=== PATIENT | female | born 1945 | race African-American/Black ===

== ENCOUNTER 2023-12-23 18:12 | Observation (INO) ==
--- NOTE | 2023-12-23 18:55 | Emergency Department Note ---
Impression & Plan Chest pain ED Provider Note HISTORY OF PRESENT ILLNESS: Patient is a 78-year-old female presenting with substernal chest pressure. Patient reports that she has been having intermittent chest pressure for the last 3 days. She states that she has also had some associated shortness of breath. Reports that 3 days ago the symptoms occurred multiple times throughout the day but seem to go away on their own. She states that today her episodes of chest pressure are little bit more intense and lasting for longer periods. She is on a baby aspirin daily. She reports her last stent was in 2019. She has a history of multiple cardiac stents. She is a complicated cardiac history. Denies any DVT or PE history. She reports that she has not had a stress test or echocardiogram done in the last year or so. She states that over the last 3 days she has been having significant shortness of breath with any sort of minimal exertion. Reports that yesterday she basically stayed in bed all day secondary to being so winded with basic activities. Denies any lower extremity edema. Denies any nausea or vomiting or abdominal pain. She has not taken any of her medications today or eaten or drink anything today. ROS: as above PHYSICAL EXAM: Constitutional: Patient appears in no acute distress. HENT: Head: Normocephalic and atraumatic. Eyes: EOMI, PERRL Mouth/Throat: Mucous membranes moist. Neck: Trachea midline. Neck supple. Cardiovascular: Bradycardic with regular rhythm. No murmurs, rubs or gallops. Intact distal pulses. Pulmonary/Chest: No respiratory distress. Breath sounds clear and equal bilaterally. No wheezes or rales. Abdominal: Abdomen soft, no tenderness, rebound or guarding. Musculoskeletal: No edema, tenderness or deformity noted. Skin: Warm and dry. No rash, erythema, pallor or cyanosis Psychiatric: Appropriate mood and affect for situation. Neurological: Alert and keenly responsive. CN II-XII grossly intact, moving all extremities equally and fully. MDM: - Vitals signs showed hypertension bradycardia - History obtained via patient. History as above. - Chronic conditions affecting care: CAD (S/p PCI); chronic low back pain; HTN; HLD - Differential diagnoses include, but are not limited to: Acute coronary syndrome; pulmonary embolism; dissection; tension pneumothorax; esophageal rupture; pneumonia - Order placed for continuous cardiac monitoring. At this time, monitor showed rate of 51 bpm with normal sinus rhythm, per my interpretation. - External medical records reviewed. - EKG interpreted by myself showed normal sinus rhythm. Rate bradycardic at 48 bpm. QT 362. No acute ischemic changes. - Laboratory workup interpreted by myself showed normal WBC; normal PT/INR; stable electrolytes; normal troponin; normal BNP; normal lipase - CXR negative for pneumonia, per my interpretation - UA negative for infection - Patient given 324 mg PO aspirin in ER. - Patient given 30 mg IV toradol, as she reports she has not yet had her naproxen today for her chronic low back pain. - Moderate HEART score. - Discussion was had with skilled nursing case manager about patient's case and need for admission - Hospitalist, Dr. Fitzgerald, consulted for admission - Patient admitted to [facility] service for further evaluation and management. ASSESSMENT AND PLAN: Diagnosis: Chest pain Plan: Admit Past Med/Surg History Problem List (Updated 12/23/23 @ 21:38 by Tanya Jacobson MD) Chest pain (Acute) Social History Smoking Status: Never smoker Preferred Language: S[place] Feels Safe at Home: Yes Allergies Allergies Allergy/AdvReac Type Severity Reaction Status Date / Time MARIA DEL CARMEN Inhibitors Allergy Severe ANGIOEDEMA Verified 12/23/23 21:33 Home Meds Home Medications Medication Instructions Recorded Confirmed acetaminophen 500 mg tablet 500 mg PO 3XWK 12/23/23 12/23/23 (Tylenol Extra Strength) albuterol sulfate 90 mcg/actuation 1 puff inhalation QID 12/23/23 12/23/23 aerosol inhaler amlodipine 10 mg tablet 10 mg PO [facility] 12/23/23 12/23/23 aspirin 81 mg tablet,delayed 81 mg PO [facility] 12/23/23 12/23/23 release atenolol 25 mg tablet 12.5 mg PO [facility] 12/23/23 12/23/23 atorvastatin 80 mg tablet 80 mg PO 12/23/23 12/23/23 ezetimibe 10 mg tablet 10 mg PO [facility] 12/23/23 12/23/23 famotidine 40 mg tablet 40 mg PO 12/23/23 12/23/23 fluticasone propionate 50 2 spray intranasal [facility] 12/23/23 12/23/23 mcg/actuation nasal spray,suspension isosorbide mononitrate 60 mg 60 mg PO [facility] 12/23/23 12/23/23 tablet,extended release 24 hr levothyroxine 100 mcg tablet 100 mcg PO DAILYBB 12/23/23 12/23/23 lorazepam 0.5 mg tablet 0.5 mg PO DAILY PRN Anxiety 12/23/23 12/23/23 losartan 50 mg-hydrochlorothiazide 1 tab PO QAM 12/23/23 12/23/23 12.5 mg tablet multivitamin 1 tab PO QAM 12/23/23 12/23/23 naproxen 250 mg tablet 250 mg PO 4XWK 12/23/23 12/23/23 omeprazole 40 mg capsule,delayed 40 mg PO QAM 12/23/23 12/23/23 release Results & Data (ED) Vital Signs Vital Signs - 24 hr 12/23/23 18:12 12/23/23 18:12 12/23/23 18:29 Temperature 36.4 C L Temperature Source Temporal Artery Scan Pulse Rate 50 L Pulse Rate [Apical] Pulse Rhythm Regular Pulse Rhythm [Apical] Pulse Strength Normal Respiratory Rate 18 Respiratory Effort / Characteristics Non-Labored Respiratory Depth Normal Respiratory Pattern Regular Blood Pressure 190/83 H Blood Pressure [Right Arm] Blood Pressure Mean 118 Blood Pressure Mean [Right Arm] Blood Pressure Position Sitting Blood Pressure Position [Right Arm] Pulse Oximetry 98 96 Oxygen Delivery Method Room Air Room Air Sepsis Recent Fever Within 48 Hours No Sepsis New/Unexplained Change in Mental Status No Sepsis Action Taken by Nursing No Action Required 12/23/23 18:30 12/23/23 19:59 12/23/23 20:44 Temperature Temperature Source Pulse Rate 53 L Pulse Rate [Apical] 52 L 51 L Pulse Rhythm Pulse Rhythm [Apical] Regular Pulse Strength Respiratory Rate 16 16 Respiratory Effort / Characteristics Non-Labored Spontaneous Non-Labored Spontaneous Respiratory Depth Normal Normal Respiratory Pattern Regular Regular Blood Pressure Blood Pressure [Right Arm] 152/64 H 122/74 Blood Pressure Mean Blood Pressure Mean [Right Arm] 93 90 Blood Pressure Position Blood Pressure Position [Right Arm] Sitting Pulse Oximetry 97 98 Oxygen Delivery Method Room Air Room Air Sepsis Recent Fever Within 48 Hours Sepsis New/Unexplained Change in Mental Status Sepsis Action Taken by Nursing Laboratory Data 12/23/23 19:58 12/23/23 19:58 Lab Results 12/23/23 12/23/23 Range/Units 19:58 20:48 WBC 6.13 (4.8-10.8) K/ul RBC 5.77 H (4.20-5.40) M/uL Hgb 14.6 (12.0-16.0) g/dl Hct 46.3 (37.0-47.0) % MCV 80.2 (80.0-100.0) fL MCH 25.3 (25.0-34.0) pg MCHC 31.5 L (32.0-36.0) g/dL RDW Std Deviation 45.1 (36.4-46.3) fL RDW Coeff of Erin 15.8 H (11.5-14.5) % Plt Count 241 (130-400) K/uL MPV 10.6 (9.4-12.4) fL Immature Gran % (Auto) 0.2 % Neut % (Auto) 47.2 % Lymph % (Auto) 40.6 % [place] % (Auto) 9.1 % Eos % (Auto) 1.8 % Baso % (Auto) 1.1 % Neut # (Auto) 2.89 (1.40-6.50) K/uL Lymph # (Auto) 2.49 (1.20-3.40) K/uL [place] # (Auto) 0.56 (0.11-0.59) K/uL Eos # (Auto) 0.11 (0.00-0.50) K/uL Baso # (Auto) 0.07 (0.00-0.20) K/uL Immature Gran # (Auto) 0.01 (0.01-0.20) K/uL PT 11.2 (9.0-12.0) Seconds INR 1.0 (0.9-1.1) Sodium 139 (136-145) mmol/L Potassium 4.3 (3.5-5.1) mmol/L Chloride 104 (98-107) mmol/L Carbon Dioxide 26 (21-32) mmol/L Anion Gap 9 (3-11) BUN 21 (6-23) mg/dl Creatinine 1.06 (0.6-1.2) mg/dl Est Cr Clr Drug Dosing Not Reportable Est GFR ( Amer) 58.7 ml/min Est GFR (Non-Af Amer) 50.6 ml/min BUN/Creatinine Ratio 19.8 (10-20) Glucose 83 (70-99(Fasting)) mg/dl Calcium 10.0 (8.6-10.3) mg/dl Total Bilirubin 0.7 (0.2-1.0) mg/dl AST 25 (13-39) U/L ALT 18 (7-52) U/L Alkaline Phosphatase 98 (34-104) U/L Troponin I High Sens 8.0 (0-14) pg/ml B-Natriuretic Peptide 86 (0-100) pg/ml Total Protein 8.8 H (6.0-8.3) gm/dl Albumin 4.4 (3.4-5.0) gm/dl Globulin 4.4 H (2.5-4.0) gm/dl Albumin/Globulin Ratio 1.0 (0.9-2) Lipase 13 (11-82) U/L Urine Color Yellow Urine Appearance Clear (Clear) Urine pH 5.0 (4.5-7.5) Ur Specific [place] 1.009 (1.000-1.030) Urine Protein Negative (Negative) Urine Glucose (UA) Negative (Negative) Urine Ketones Negative (Negative) Urine Blood Negative (Negative) Urine Nitrite Negative (Negative) Urine Bilirubin Negative (Negative) Urine Urobilinogen Negative (Negative) Ur Leukocyte Esterase 1+ H (Negative) Urine WBC (Auto) 0-5 (0-5) /hpf Urine RBC (Auto) 0-2 (0-2) /hpf U Hyaline Cast (Auto) 0-2 (0-2) /lpf U Epithel Cells (Auto) 0-2 (0-2) /hpf Urine Bacteria (Auto) None Seen (None Seen) Administered Medications Discontinued Medications Aspirin (Aspirin Chew 324 Mg) 324 mg PO NOW STA Stop: 12/23/23 18:56 Last Admin: 12/23/23 19:21 Dose: 324 mg Documented By: REGULO Ketorolac Tromethamine (Ketorolac 30 Mg/Ml Vial) 30 mg IV NOW ONE Stop: 12/23/23 21:03 Last Admin: 12/23/23 21:10 Dose: 30 mg Documented By: REGULO Imaging Data Radiologist's Impression: Chest X-Ray 12/23/23 18:29 XR chest 1V portable HISTORY: 78 years-old Female Chest pain, nonspecific COMPARISON: None TECHNIQUE: AP view of the chest FINDINGS: Cardiac silhouette is enlarged. Surgical clips project over the left lung base and left hilum. Mild nonspecific interstitial coarsening, likely chronic. No pneumothorax or pleural effusion. Bones appear grossly intact. IMPRESSION: No acute process. ACT 112: Negative or not required by law. The above report was generated using voice recognition software. It may contain grammatical, syntax or spelling errors. Electronically signed by: Roshan Kahn M.D. 12/23/2023 6:59 PM Discharge Plan Visit Data Chief Complaint: Cardiac Assessment Stated Complaint: CARDIAC ASSESSMENT ED Provider: Tanya Jacobson Discharge Problem: Chest pain Forms Stand Alone Forms: My [facility] [employer] Prescriptions Prescriptions: No Action multivitamin [Multiple Vitamin] Tablet 1 tab PO QAM atorvastatin 80 mg tablet 80 mg PO HS famotidine 40 mg tablet 40 mg PO HS atenolol 25 mg tablet 12.5 mg PO QAM naproxen 250 mg tablet 250 mg PO 4XWK Rx Instructions: TAKE IN MORNING OF //SUN/SUN omeprazole 40 mg capsule,delayed release(DR/EC) 40 mg PO QAM isosorbide mononitrate 60 mg tablet extended release 24 hr 60 mg PO QAM lorazepam 0.5 mg tablet 0.5 mg PO DAILY PRN (Reason: Anxiety) amlodipine 10 mg tablet 10 mg PO QAM albuterol sulfate 90 mcg/actuation HFA aerosol inhaler 1 puff INHALATION QID losartan-hydrochlorothiazide 50-12.5 mg tablet 1 tab PO QAM fluticasone propionate 50 mcg/actuation spray,suspension 2 spray INTRANASAL QAM ezetimibe 10 mg tablet 10 mg PO QAM levothyroxine 100 mcg tablet 100 mcg PO DAILYBB acetaminophen [Tylenol Extra Strength] 500 mg Tablet 500 mg PO 3XWK Rx Instructions: take in the mornings of MON/WED/FRI aspirin [Aspirin Low-Strength] 81 mg Tablet,Delayed Release (Dr/Ec) 81 mg PO QAM Referrals Referrals: PCP,NO [Physician] -
--- NOTE | 2023-12-23 19:00 | XRay Report ---
XR chest 1V portable HISTORY: 78 years-old Female Chest pain, nonspecific COMPARISON: None TECHNIQUE: AP view of the chest FINDINGS: Cardiac silhouette is enlarged. Surgical clips project over the left lung base and left hilum. Mild n onspecific interstitial coarsening, likely chronic. No pneumothorax or pleural effusion. Bones appear grossly intact. IMPRESSION: No acute process. ACT 112: Negative or not required by law. The above report was generated using voice recognition software. It may contain grammatical, syntax o r spelling errors. Electronically signed by: Roshan Kahn M.D. 12/23/2023 6:59 PM
[2023-12-23] MEDS: ASPIRIN CHEW 324 MG PO STA (19:21)
[2023-12-23 20:14] LABS: Basophils # (auto) 0.07 K/uL (0.00-0.20); Basophils % (auto) 1.1 %; Eosinophils # (auto) 0.11 K/uL (0.00-0.50); Eosinophils % (auto) 1.8 %; Hematocrit (blood only) 46.3 % (37.0-47.0); Hemoglobin 14.6 g/dl (12.0-16.0); Immature Granulocytes # (auto) 0.01 K/uL (0.01-0.20); Immature Granulocytes % (auto) 0.2 %; Lymphocytes # (auto) 2.49 K/uL (1.20-3.40); Lymphocytes % (auto) 40.6 %; Mean Corpuscular Hemoglobin 25.3 pg (25.0-34.0); Mean Corpuscular Hgb Conc 31.5 g/dL (32.0-36.0); Mean Corpuscular Volume 80.2 fL (80.0-100.0); Mean Platelet Volume 10.6 fL (9.4-12.4); Monocytes # (auto) 0.56 K/uL (0.11-0.59); Monocytes % (auto) 9.1 %; Neutrophils # (auto) 2.89 K/uL (1.40-6.50); Neutrophils % (auto) 47.2 %; Platelet Count 241 K/uL (130-400); RDW Coefficient of Variation 15.8 % (11.5-14.5); RDW Standard Deviation 45.1 fL (36.4-46.3); Red Blood Count 5.77 M/uL (4.20-5.40); White Blood Count 6.13 K/ul (4.8-10.8)
[2023-12-23 20:29] LABS: Alanine Aminotransferase 18 U/L (7-52); Albumin Level 4.4 gm/dl (3.4-5.0); Alkaline Phosphatase 98 U/L (34-104); Anion Gap 9 (3-11); Aspartate Aminotransferase 25 U/L (13-39); BUN Creatinine Ratio 19.8 (10-20); Bilirubin,Total 0.7 mg/dl (0.2-1.0); Blood Urea Nitrogen 21 mg/dl (6-23); Carbon Dioxide 26 mmol/L (21-32); Chloride 104 mmol/L (98-107); Est GFR (African American) 58.7 ml/min; Est GFR (Non-African American) 50.6 ml/min; Globulin 4.4 gm/dl (2.5-4.0); Glucose 83 mg/dl (70-99(Fasting)); Lipase 13 U/L (11-82); Potassium 4.3 mmol/L (3.5-5.1); Sodium 139 mmol/L (136-145); Total Protein 8.8 gm/dl (6.0-8.3)
[2023-12-23 20:39] LABS: Prothrombin Time 11.2 Seconds (9.0-12.0)
[2023-12-23 20:59] LABS: Appearance Urine Clear (Clear); Bacteria Urine Automated None Seen (None Seen); Bilirubin Urine Negative (Negative); Blood Urine Negative (Negative); Cast Urine Automated 0-2 /lpf (0-2); Color Urine Yellow; Epithelial Cell Urine Auto 0-2 /hpf (0-2); Glucose Urine UA Negative (Negative); Ketones Urine Negative (Negative); Leukocyte Esterase Urine 1+ (Negative); Nitrite Urine Negative (Negative); Protein Urine Negative (Negative); RBC Urine Automated 0-2 /hpf (0-2); Specific Gravity Urine 1.009 (1.000-1.030); Urobilinogen Urine Negative (Negative); WBC Urine Automated 0-5 /hpf (0-5)
[2023-12-23] MEDS: KETOROLAC 30 MG/ML VIAL IV ONE (21:10)
[2023-12-23] MEDS ORDERED: ACETAMINOPHEN 325 MG TAB PO PRN (21:22)
--- NOTE | 2023-12-23 21:45 | History & Physical Report ---
Date of Service December 23, 2023 Assessment & Plan (1) Chest pain: Plan: 78yo female with history of CAD s/p stent placement x 3 several [address] ago at 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 Patient with 3 days of substernal chest pressure - mostly exertional, at times with rest. Troponin x 1 negative EKG with no acute ischemic changes -Observation to medical with telemetry -Trend troponin -Nitro PRN chest pain -Continue ASA -Continue Atorvastatin -Continue Zetia -Continue Isosorbide Mononitrate -Continue Losartan/HCTZ -Continue Amlodipine -Cardiology consultation appreciated Plan GERD -Cotninue Famotidine -Continue Protonix 40mg po daily Hypothyroid -Continue Synthroid History of Present Illness Chief Complaint: Chest discomfort Primary Care Provider: TAPAN Bowens is a pleasant 78yo female presenting with chest discomfort. Patient with history of CAD s/p stent placement x 3 (prior to [place], unsure of year) at [facility]. Per patient and granddaughters at bedside, patient apparently suffered a coronary artery dissection following her stent placement and sustained 7 cardiac arrests. She then had placement of 2 subsequent stents. She had a temporary pacer in place for a time. She follows q 3 monthly with her home Hemodialysis Charge Nurse - Dr. Wilson at [facility]. Patient is visiting family in the [place] area. She reports 3 days of intermittent chest discomfort. Pressure and tightening as well as shortness of breath. This sensation occurs mostly after climbing stairs but occasionally occurs at rest. She does have some discomfort in her right shoulder blade as well but is not sure if this is secondary to muscular pain - it has been improving slightly with use of heating pad and medications. Yesterday she felt very tired and wiped out all day and spent most of the day in bed. Patient denies fever, chills, nausea, vomiting, diarrhea. No edema, orthopnea or weight gain. No additional complaints at this time. In the ER she is afebrile, sinus bradycardic with HR 50-53 bpm, BP is well controlled. No respiratory distress. ER Course: Toradol 30mg IV ASA 324mg PO Allergies Allergy/AdvReac Type Severity Reaction Status Date / Time MARIA DEL CARMEN Inhibitors Allergy Severe ANGIOEDEMA Verified 12/23/23 21:33 Home Medications Medication Instructions Recorded Confirmed Type acetaminophen 500 mg tablet 500 mg PO 3XWK 12/23/23 12/23/23 History (Tylenol Extra Strength) albuterol sulfate 90 mcg/actuation 1 puff inhalation QID 12/23/23 12/23/23 History aerosol inhaler amlodipine 10 mg tablet 10 mg PO QAM 12/23/23 12/23/23 History aspirin 81 mg tablet,delayed 81 mg PO QAM 12/23/23 12/23/23 History release atenolol 25 mg tablet 12.5 mg PO QAM 12/23/23 12/23/23 History atorvastatin 80 mg tablet 80 mg PO HS 12/23/23 12/23/23 History ezetimibe 10 mg tablet 10 mg PO QA 12/23/23 12/23/23 History famotidine 40 mg tablet 40 mg PO HS 12/23/23 12/23/23 History fluticasone propionate 50 2 spray intranasal QA 12/23/23 12/23/23 History mcg/actuation nasal spray,suspension isosorbide mononitrate 60 mg 60 mg PO QA 12/23/23 12/23/23 History tablet,extended release 24 hr levothyroxine 100 mcg tablet 100 mcg PO DAILYBB 12/23/23 12/23/23 History lorazepam 0.5 mg tablet 0.5 mg PO DAILY PRN Anxiety 12/23/23 12/23/23 History losartan 50 mg-hydrochlorothiazide 1 tab PO QAM 12/23/23 12/23/23 History 12.5 mg tablet multivitamin 1 tab PO QAM 12/23/23 12/23/23 History naproxen 250 mg tablet 250 mg PO 4XWK 12/23/23 12/23/23 History omeprazole 40 mg capsule,delayed 40 mg PO QA 12/23/23 12/23/23 History release Past Med/Surg History Problem List (Updated 12/23/23 @ 23:07 by Jaylene Fitzgerald DO) Chest pain (Acute) Medical History (Updated 12/23/23 @ 23:07 by Jaylene Fitzgerald DO) Breast cancer s/p mastectomy. Cancer free. GERD (gastroesophageal reflux disease) Spinal stenosis Sciatica CAD (coronary artery disease) Surgical History (Updated 12/23/23 @ 23:07 by Jaylene Fitzgerald DO) History of mastectomy History of spinal fusion Family History (Updated 12/23/23 @ 23:07 by Jaylene Fitzgerald DO) Mother Cancer Social History (Updated 12/23/23 @ 23:07 by Jaylene Fitzgerald DO) Smoking Status: Former smoker Hx Alcohol Use: Yes (social use) Hx Substance Use: No Preferred Language: Persian Feels Safe at Home: Yes Review of Systems Review of Systems: All systems reviewed & are unremarkable except as noted in HPI & below Physical Exam Physical Exam: General: patient resting comfortably, NAD, non-toxic in appearance, AA&O x 4 Skin: warm, dry, intact, no rashes or lesions HEENT: NC/AT, PERRL, EOMI, anicteric sclera, conjunctiva without injection, external ear normal to inspection and nontender, nares patent, moist mucus membranes, dentition intact, no oropharyngeal lesions, neck supple, trachea midline, no LAD, no thyromegaly, no JVD Heart: +S1/S2, regular, bradycardia, no m/r/g, some chest wall pain with palpation Lungs: equal air entry bilaterally, no rales/rhonchi/wheezes Abd: +BS, soft, NT/ND, no masses/organomegaly/ascites Ext: warm, 2+ pulses in UE/LE bilaterally, no clubbing/cyanosis or edema Neuro: nonfocal, patient AA&O x 4, speech intact, no facial droop, moving all extremities on command with equal strength 5/5 Tenderness with palpation of right shoulder blades and right paraspinal musculature Results & Data Results & Data Vital Signs (Past 12 Hours) Vital Signs Temp Pulse Pulse Resp BP BP Pulse Ox 12/23/23 20:44 51 L 16 122/74 98 12/23/23 19:59 52 L 16 152/64 H 97 12/23/23 18:30 53 L 12/23/23 18:29 96 12/23/23 18:12 12/23/23 18:12 36.4 C L 50 L 18 190/83 H 98 O2 Del Method 12/23/23 20:44 Room Air 12/23/23 19:59 Room Air 12/23/23 18:30 12/23/23 18:29 12/23/23 18:12 Room Air 12/23/23 18:12 Room Air Laboratory Results Laboratory Results WBC 6.13 K/ul (4.8-10.8) 12/23/23 19:58 RBC 5.77 M/uL (4.20-5.40) H 12/23/23 19:58 Hgb 14.6 g/dl (12.0-16.0) 12/23/23 19:58 Hct 46.3 % (37.0-47.0) 12/23/23 19:58 MCV 80.2 fL (80.0-100.0) 12/23/23 19:58 MCH 25.3 pg (25.0-34.0) 12/23/23 19:58 MCHC 31.5 g/dL (32.0-36.0) L 12/23/23 19:58 RDW Std Deviation 45.1 fL (36.4-46.3) 12/23/23 19:58 RDW Coeff of Erin 15.8 % (11.5-14.5) H 12/23/23 19:58 Plt Count 241 K/uL (130-400) 12/23/23 19:58 MPV 10.6 fL (9.4-12.4) 12/23/23 19:58 Immature Gran % (Auto) 0.2 % 12/23/23 19:58 Neut % (Auto) 47.2 % 12/23/23 19:58 Lymph % (Auto) 40.6 % 12/23/23 19:58 [place] % (Auto) 9.1 % 12/23/23 19:58 Eos % (Auto) 1.8 % 12/23/23 19:58 Baso % (Auto) 1.1 % 12/23/23 19:58 Neut # (Auto) 2.89 K/uL (1.40-6.50) 12/23/23 19:58 Lymph # (Auto) 2.49 K/uL (1.20-3.40) 12/23/23 19:58 [place] # (Auto) 0.56 K/uL (0.11-0.59) 12/23/23 19:58 Eos # (Auto) 0.11 K/uL (0.00-0.50) 12/23/23 19:58 Baso # (Auto) 0.07 K/uL (0.00-0.20) 12/23/23 19:58 Immature Gran # (Auto) 0.01 K/uL (0.01-0.20) 12/23/23 19:58 PT 11.2 Seconds (9.0-12.0) 12/23/23 19:58 INR 1.0 (0.9-1.1) 12/23/23 19:58 Sodium 139 mmol/L (136-145) 12/23/23 19:58 Potassium 4.3 mmol/L (3.5-5.1) 12/23/23 19:58 Chloride 104 mmol/L (98-107) 12/23/23 19:58 Carbon Dioxide 26 mmol/L (21-32) 12/23/23 19:58 Anion Gap 9 (3-11) 12/23/23 19:58 BUN 21 mg/dl (6-23) 12/23/23 19:58 Creatinine 1.06 mg/dl (0.6-1.2) 12/23/23 19:58 Est Cr Clr Drug Dosing Not Reportable 12/23/23 19:58 Est GFR ( Amer) 58.7 ml/min 12/23/23 19:58 Est GFR (Non-Af Amer) 50.6 ml/min 12/23/23 19:58 BUN/Creatinine Ratio 19.8 (10-20) 12/23/23 19:58 Glucose 83 mg/dl (70-99(Fasting)) 12/23/23 19:58 Calcium 10.0 mg/dl (8.6-10.3) 12/23/23 19:58 Magnesium 1.4 mg/dl (1.7-2.4) L 12/23/23 19:58 Total Bilirubin 0.7 mg/dl (0.2-1.0) 12/23/23 19:58 AST 25 U/L (13-39) 12/23/23 19:58 ALT 18 U/L (7-52) 12/23/23 19:58 Alkaline Phosphatase 98 U/L (34-104) 12/23/23 19:58 Troponin I High Sens 8.0 pg/ml (0-14) 12/23/23 19:58 B-Natriuretic Peptide 86 pg/ml (0-100) 12/23/23 19:58 Total Protein 8.8 gm/dl (6.0-8.3) H 12/23/23 19:58 Albumin 4.4 gm/dl (3.4-5.0) 12/23/23 19:58 Globulin 4.4 gm/dl (2.5-4.0) H 12/23/23 19:58 Albumin/Globulin Ratio 1.0 (0.9-2) 12/23/23 19:58 Lipase 13 U/L (11-82) 12/23/23 19:58 Urine Color Yellow 12/23/23 20:48 Urine Appearance Clear (Clear) 12/23/23 20:48 Urine pH 5.0 (4.5-7.5) 12/23/23 20:48 Ur Specific [place] 1.009 (1.000-1.030) 12/23/23 20:48 Urine Protein Negative (Negative) 12/23/23 20:48 Urine Glucose (UA) Negative (Negative) 12/23/23 20:48 Urine Ketones Negative (Negative) 12/23/23 20:48 Urine Blood Negative (Negative) 12/23/23 20:48 Urine Nitrite Negative (Negative) 12/23/23 20:48 Urine Bilirubin Negative (Negative) 12/23/23 20:48 Urine Urobilinogen Negative (Negative) 12/23/23 20:48 Ur Leukocyte Esterase 1+ (Negative) H 12/23/23 20:48 Urine WBC (Auto) 0-5 /hpf (0-5) 12/23/23 20:48 Urine RBC (Auto) 0-2 /hpf (0-2) 12/23/23 20:48 U Hyaline Cast (Auto) 0-2 /lpf (0-2) 12/23/23 20:48 U Epithel Cells (Auto) 0-2 /hpf (0-2) 12/23/23 20:48 Urine Bacteria (Auto) None Seen (None Seen) 12/23/23 20:48 Impressions Chest X-Ray 12/23/23 18:29 XR chest 1V portable HISTORY: 78 years-old Female Chest pain, nonspecific COMPARISON: None TECHNIQUE: AP view of the chest FINDINGS: Cardiac silhouette is enlarged. Surgical clips project over the left lung base and left hilum. Mild nonspecific interstitial coarsening, likely chronic. No pneumothorax or pleural effusion. Bones appear grossly intact. IMPRESSION: No acute process. ACT 112: Negative or not required by law. The above report was generated using voice recognition software. It may contain grammatical, syntax or spelling errors. Electronically signed by: Roshan Kahn M.D. 12/23/2023 6:59 PM ECG Additional Comments: EKG per my interpretation with sinus bradycardia at 48bpm, sinus arrhythmia, ZG=475, QRS=90, QZr=086, no acute ischemic changes PG Care Time/CCT Total # of Minutes Spent Total Time Spent with Patient: Total time spent is greater than 50% in coordination of care (as documented) at patient's floor/unit and/or counseling patient: Coding Level of Care Code 54309 INT INP/OBS CARE 2/55MIN Diagnoses Chest pain R07.9
[2023-12-23 21:50] LABS: Magnesium 1.4 mg/dl (1.7-2.4)
[2023-12-23] MEDS: PANTOprazole 40 MG TAB PO STA (23:22)
[2023-12-23] MEDS ORDERED: NITROGLYCERIN SL 0.4 MG/TAB TAB SL PRN (23:48)
[2023-12-23] MEDS ORDERED: LORazepam 0.5 MG TAB PO PRN (23:48)
[2023-12-24 04:53] LABS: Basophils # (auto) 0.08 K/uL (0.00-0.20); Basophils % (auto) 1.4 %; Eosinophils # (auto) 0.14 K/uL (0.00-0.50); Eosinophils % (auto) 2.5 %; Hematocrit (blood only) 38.3 % (37.0-47.0); Hemoglobin 12.6 g/dl (12.0-16.0); Immature Granulocytes # (auto) 0.01 K/uL (0.01-0.20); Immature Granulocytes % (auto) 0.2 %; Lymphocytes # (auto) 2.09 K/uL (1.20-3.40); Lymphocytes % (auto) 37.3 %; Mean Corpuscular Hgb Conc 32.9 g/dL (32.0-36.0); Mean Corpuscular Volume 79.1 fL (80.0-100.0); Mean Platelet Volume 10.9 fL (9.4-12.4); Monocytes # (auto) 0.72 K/uL (0.11-0.59); Monocytes % (auto) 12.8 %; Neutrophils # (auto) 2.57 K/uL (1.40-6.50); Neutrophils % (auto) 45.8 %; Platelet Count 234 K/uL (130-400); RDW Coefficient of Variation 15.4 % (11.5-14.5); RDW Standard Deviation 44.4 fL (36.4-46.3); Red Blood Count 4.84 M/uL (4.20-5.40); White Blood Count 5.61 K/ul (4.8-10.8)
[2023-12-24 05:09] LABS: BUN Creatinine Ratio 22.9 (10-20); Calcium 8.8 mg/dl (8.6-10.3); Est GFR (African American) 59.3 ml/min; Est GFR (Non-African American) 51.2 ml/min; Magnesium 1.3 mg/dl (1.7-2.4); Potassium 3.9 mmol/L (3.5-5.1)
[2023-12-24 05:15] LABS: Troponin I High Sensitivity 5.9 pg/ml (0-14)
[2023-12-24] MEDS: LEVOTHYROXINE SODIUM 100 MCG TABLET PO SCH (05:51)
--- NOTE | 2023-12-24 09:57 | Cardiology Consultation ---
Date of Consultation December 24, 2023 Assessment & Plan (1) Chest pain: (2) CAD (coronary artery disease): (3) Stented coronary artery: (4) HTN (hypertension): (5) Hypercholesterolemia: Plan Mrs. Bowens is a 78 year old female with a history of Hypertension, Hypercholesterolemia, CAD s/p Intracoronary Stent complicated by Coronary Artery Dissection s/p Cardiac Arrest 2019 followed by a deployment of 2 more stents, GERD, Breast Cancer, and Lumbar Spinal Stenosis who was admitted to observation status after presenting on 12/23/2023 with a 3 day history of Substernal Chest Pressure and Increased Exertional Dyspnea. Patient is in town visiting family and she had felt poorly with the substernal chest pressure, increased exertional dyspnea, and fatigue -- to the point she stayed in bed yesterday and just did not feel like doing much of anything. Her substernal chest pressure was made worse by exertion, she does not have any radiation of the chest pressure, nor does she have any associated symptoms other than the dyspnea. She specifically denies any associated nausea, vomiting, or diaphoresis. Patient does admit that her exertional dyspnea has been present for some time now and not just for the past 3 days. She had a discussion with her diamond expert about this, and her diamond expert recommended increased exercise. However, the patient has lumbar spinal stenosis which limits her activities. Patient is currently being seen in the ER in -, and she was sleeping comfortably when I entered the room and I spoke with her daughter who gave me a lot of background. Patient then woke up and provided the vast majority of her medical history. Patient currently states that she is feeling better, does not have any chest pressure at this time. Patient has not had any shortness of breath at rest, orthopnea, or PND. She denies any palpitations, syncope, or near-syncope. Her workup so far shows high sensitivity troponin I levels are unremarkable at 8.0 pg/mL, 8.5 pg/mL, and 5.9 pg/mL. BNP is normal at 86 pg/mL. Hemoglobin 12.6 g/dL, hematocrit 38.3%, WBC count 5.61, platelet count [id number]. Potassium 3.9 mmol/L, BUN 24 mg/dL, and creatinine 1.05 mg/dL. EKG shows sinus bradycardia with sinus arrhythmia, otherwise normal tracing. cafeteria monitor shows predominantly sinus bradycardia. This does not appear to be ischemic chest pain as her cardiac enzymes are negative and her EKG does not show any acute or dynamic changes. Recommend the followin. Dobutamine stress echocardiogram today. 2. Continue Aspirin 81 mg daily. 3. Continue Atenolol 12.5 mg daily. 4. Continue Amlodipine 10 mg daily. 5. Continue Imdur ER 60 mg daily. 6. Consider increasing Losartan-Hydrochlorothiazide based on her elevated blood pressures. 7. Continue Atorvastatin 80 mg daily at bedtime. 8. Continue Zetia 10 mg daily. If her dobutamine stress echocardiogram is negative, she may be discharged to home today. Thank you for asking us to see her in consultation. History of Present Illness Reason for Consultation: -- Substernal Chest Pressure. -- CAD s/p Intracoronary Stents x 3. Requesting Physician: Joana David MD Attending Physician: Reji Esqueda MD History of Present Illness Mrs. Bowens is a 78 year old female with a history of Hypertension, Hypercholesterolemia, CAD s/p Intracoronary Stent complicated by Coronary Artery Dissection s/p Cardiac Arrest 2019 followed by a deployment of 2 more stents, GERD, Breast Cancer, and Lumbar Spinal Stenosis who was admitted to observation status after presenting on 12/23/2023 with a 3 day history of Substernal Chest Pressure and Increased Exertional Dyspnea. Patient is in town visiting family and she had felt poorly with the substernal chest pressure, increased exertional dyspnea, and fatigue -- to the point she stayed in bed yesterday and just did not feel like doing much of anything. Her substernal chest pressure was made worse by exertion, she does not have any radiation of the chest pressure, nor does she have any associated symptoms other than the dyspnea. She specifically denies any associated nausea, vomiting, or diaphoresis. Patient does admit that her exertional dyspnea has been present for some time now and not just for the past 3 days. She had a discussion with her diamond expert about this, and her diamond expert recommended increased exercise. However, the patient has lumbar spinal stenosis which limits her activities. Patient is currently being seen in the ER in -, and she was sleeping comfortably when I entered the room and I spoke with her daughter who gave me a lot of background. Patient then woke up and provided the vast majority of her medical history. Patient currently states that she is feeling better, does not have any chest pressure at this time. Patient has not had any shortness of breath at rest, orthopnea, or PND. She denies any palpitations, syncope, or near-syncope. Allergies Allergy/AdvReac Type Severity Reaction Status Date / Time MARIA DEL CARMEN Inhibitors Allergy Severe ANGIOEDEMA Verified 12/23/23 21:33 Home Medications Medication Instructions Recorded Confirmed Type acetaminophen 500 mg tablet 500 mg PO 3XWK 12/23/23 12/23/23 History (Tylenol Extra Strength) albuterol sulfate 90 mcg/actuation 1 puff inhalation QID 12/23/23 12/23/23 History aerosol inhaler amlodipine 10 mg tablet 10 mg PO QAM 12/23/23 12/23/23 History aspirin 81 mg tablet,delayed 81 mg PO QAM 12/23/23 12/23/23 History release atenolol 25 mg tablet 12.5 mg PO QA 12/23/23 12/23/23 History atorvastatin 80 mg tablet 80 mg PO HS 12/23/23 12/23/23 History ezetimibe 10 mg tablet 10 mg PO QA 12/23/23 12/23/23 History famotidine 40 mg tablet 40 mg PO HS 12/23/23 12/23/23 History fluticasone propionate 50 2 spray intranasal QA 12/23/23 12/23/23 History mcg/actuation nasal spray,suspension isosorbide mononitrate 60 mg 60 mg PO QA 12/23/23 12/23/23 History tablet,extended release 24 hr levothyroxine 100 mcg tablet 100 mcg PO DAILYBB 12/23/23 12/23/23 History lorazepam 0.5 mg tablet 0.5 mg PO DAILY PRN Anxiety 12/23/23 12/23/23 History losartan 50 mg-hydrochlorothiazide 1 tab PO QA 12/23/23 12/23/23 History 12.5 mg tablet multivitamin 1 tab PO QAM 12/23/23 12/23/23 History naproxen 250 mg tablet 250 mg PO 4XWK 12/23/23 12/23/23 History omeprazole 40 mg capsule,delayed 40 mg PO QAM 12/23/23 12/23/23 History release Patient History Medical History Breast cancer s/p mastectomy. Cancer free. GERD (gastroesophageal reflux disease) Spinal stenosis Sciatica CAD (coronary artery disease) Surgical History History of mastectomy History of spinal fusion Family History Mother Cancer Social History Smoking Status: Never smoker Second Hand Exposure: No; Do You Dip or Chew Tobacco: No; Tobacco Cessation Education Requested by Patient: No Hx Alcohol Use: No Hx Substance Use: No Preferred Language: Slovak Communication Ability: Effective Audiovisual Librarian Required: No Beliefs That Will Affect Care: None Current Living Situation: Alone Other Information That Helps Us Care for You: No Feels Safe at Home: Yes Safety Concerns: Feels Safe At This Time Assistive Devices: Cane Review of Systems Review of Systems: -- 10 point ROS completed and is negativ e with the exception of what is mentioned in the HPI. Physical Exam Physical Exam: Blood pressure 187/81, pulse 50 and regular, respiratory rate 12, SpO2 is 95%. GENERAL: Patient in no acute distress. HEENT: Head is atraumatic, normocephalic. EOM's intact. Facies symmetric. No perioral cyanosis. NECK: No JVD. JVP is not elevated. Carotid upstrokes are + 2 bilaterally without bruits. CHEST/LUNGS: Clear to auscultation throughout all lung romero. No wheezes, rales, or crackles. CVS: S1 and S2 are regular, bradycardic without murmurs, gallops, or rubs. PMI is nonpalpable. No lifts, heaves, or thrills. No abdominal aortic or renal bruits. ABDOMINAL EXAM: Bowel sounds are present. EXTREMITIES: No clubbing or cyanosis. No edema. Intact radial pulses bilaterally. NEUROLOGIC EXAM: Patient is awake, alert, and oriented. Pleasant and cooperative. Answers questions appropriately. Speech is clear. DOBUTAMINE STRESS ECHOCARDIOGRAM is pending. Results & Data Vital Signs (Past 12 Hours) Vital Signs Temp Pulse Pulse Resp BP Pulse Ox Pulse Ox 12/24/23 06:54 50 L 09/09/24 05:44 53 L 16 187/81 H 95 12/24/23 01:16 100 12/24/23 01:00 36.5 C 50 L 16 147/85 H 98 12/23/23 23:48 50 L 16 127/63 98 12/23/23 23:32 55 L 18 172/100 H 97 12/23/23 23:04 49 L 12/23/23 22:00 68 18 100 O2 Del Method O2 Del Method 12/24/23 06:54 12/24/23 05:44 Room Air 12/24/23 01:16 Room Air 12/24/23 01:00 Room Air 12/23/23 23:48 Room Air 12/23/23 23:32 Room Air 12/23/23 23:04 12/23/23 22:00 Room Air Laboratory Results Laboratory Results - last 24 hr 12/23/23 12/23/23 12/23/23 19:58 20:48 22:00 WBC 6.13 RBC 5.77 H Hgb 14.6 Hct 46.3 MCV 80.2 MCH 25.3 MCHC 31.5 L RDW Std Deviation 45.1 RDW Coeff of Erin 15.8 H Plt Count 241 MPV 10.6 Immature Gran % (Auto) 0.2 Neut % (Auto) 47.2 Lymph % (Auto) 40.6 [place] % (Auto) 9.1 Eos % (Auto) 1.8 Baso % (Auto) 1.1 Neut # (Auto) 2.89 Lymph # (Auto) 2.49 [place] # (Auto) 0.56 Eos # (Auto) 0.11 Baso # (Auto) 0.07 Immature Gran # (Auto) 0.01 PT 11.2 INR 1.0 Sodium 139 Potassium 4.3 Chloride 104 Carbon Dioxide 26 Anion Gap 9 BUN 21 Creatinine 1.06 Est Cr Clr Drug Dosing Not Reportable Est GFR ( Amer) 58.7 Est GFR (Non-Af Amer) 50.6 BUN/Creatinine Ratio 19.8 Glucose 83 Calcium 10.0 Magnesium 1.4 L Total Bilirubin 0.7 AST 25 ALT 18 Alkaline Phosphatase 98 Troponin I High Sens 8.0 8.5 B-Natriuretic Peptide 86 Total Protein 8.8 H Albumin 4.4 Globulin 4.4 H Albumin/Globulin Ratio 1.0 Lipase 13 Urine Color Yellow Urine Appearance Clear Urine pH 5.0 Ur Specific [place] 1.009 Urine Protein Negative Urine Glucose (UA) Negative Urine Ketones Negative Urine Blood Negative Urine Nitrite Negative Urine Bilirubin Negative Urine Urobilinogen Negative Ur Leukocyte Esterase 1+ H Urine WBC (Auto) 0-5 Urine RBC (Auto) 0-2 U Hyaline Cast (Auto) 0-2 U Epithel Cells (Auto) 0-2 Urine Bacteria (Auto) None Seen 12/24/23 04:12 WBC 5.61 RBC 4.84 Hgb 12.6 Hct 38.3 MCV 79.1 L MCH 26.0 MCHC 32.9 RDW Std Deviation 44.4 RDW Coeff of [place] 15.4 H Plt Count 234 MPV 10.9 Immature Gran % (Auto) 0.2 Neut % (Auto) 45.8 Lymph % (Auto) 37.3 [place] % (Auto) 12.8 Eos % (Auto) 2.5 Baso % (Auto) 1.4 Neut # (Auto) 2.57 Lymph # (Auto) 2.09 [place] # (Auto) 0.72 H Eos # (Auto) 0.14 Baso # (Auto) 0.08 Immature Gran # (Auto) 0.01 PT INR Sodium 139 Potassium 3.9 Chloride 108 H Carbon Dioxide 24 Anion Gap 7 BUN 24 H Creatinine 1.05 Est Cr Clr Drug Dosing 51.0 Est GFR ( Amer) 59.3 Est GFR (Non-Af Amer) 51.2 BUN/Creatinine Ratio 22.9 H Glucose 92 Calcium 8.8 Magnesium 1.3 L Total Bilirubin AST ALT Alkaline Phosphatase Troponin I High Sens 5.9 B-Natriuretic Peptide Total Protein Albumin Globulin Albumin/Globulin Ratio Lipase Urine Color Urine Appearance Urine pH Ur Specific [place] Urine Protein Urine Glucose (UA) Urine Ketones Urine Blood Urine Nitrite Urine Bilirubin Urine Urobilinogen Ur Leukocyte Esterase Urine WBC (Auto) Urine RBC (Auto) U Hyaline Cast (Auto) U Epithel Cells (Auto) Urine Bacteria (Auto) Diagnostic Findings CXR 12/23/23: Cardiac silhouette is enlarged. Surgical clips project over the left lung base and left hilum. Mild nonspecific interstitial coarsening, likely chronic. No pneumothorax or pleural effusion. Bones appear grossly intact. IMPRESSION: No acute process. Medications Administered Medication List Levothyroxine Sodium (Levothyroxine Sodium 100 Mcg Tablet) 100 mcg PO DAILYBB S CH Stop: 01/23/24 06:29 Last Admin: 12/24/23 05:51 Dose: 100 mcg Documented By: CAIN Discontinued Medications Aspirin (Aspirin Chew 324 Mg) 324 mg PO NOW STA Stop: 12/23/23 18:56 Last Admin: 12/23/23 19:21 Dose: 324 mg Documented By: REGULO Ketorolac Tromethamine (Ketorolac 30 Mg/Ml Vial) 30 mg IV NOW ONE Stop: 12/23/23 21:03 Last Admin: 12/23/23 21:10 Dose: 30 mg Documented By: REGULO Pantoprazole Sodium (Pantoprazole 40 Mg Tab) 40 mg PO NOW STA Stop: 12/23/23 21:23 Last Admin: 12/23/23 23:22 Dose: 40 mg Documented By: REGULO PG Care Time/CCT Total # of Minutes Spent Total Time Spent with Patient: Total time spent is greater than 50% in coordination of care (as documented) at patient's floor/unit and/or counseling patient:44 [place] [address] INT INP/OBS CARE 2/55MIN Patient Type New Medical Decision Making Moderate Complexity Diagnoses Chest pain, unspecified type R07.9 Chest pain type: unspecified Coronary artery disease involving [place] coronary artery of [place] heart without angina pectoris I25.10 Associated angina: without angina Coronary Disease-Associated Artery/Lesion type: [place] artery [place] vs. transplanted heart: [place] heart Stented coronary artery Z95.5 Primary hypertension I10 Hypertension type: primary hypertension Hypercholesterolemia E78.00 Time Spent (min) 58 (1) Chest pain Chest pain type: unspecified Qualified Code(s): R07.9 - Chest pain, unspecified (2) CAD (coronary artery disease) Associated angina: without angina Coronary Disease-Associated Artery/Lesion type: [place] artery [place] vs. transplanted heart: [place] heart Qualified Code(s): I25.10 - Atherosclerotic heart disease of [place] coronary artery without angina pectoris (4) HTN (hypertension) Hypertension type: primary hypertension Qualified Code(s): I10 - Essential (primary) hypertension
[2023-12-24] MEDS: LOSARTAN/HCTZ 50/12.5MG TAB PO SCH (11:52)
[2023-12-24] MEDS: amLODIPine BESYLATE 5 MG TAB PO SCH (11:52)
[2023-12-24] MEDS: ASPIRIN 81 MG ECTAB PO SCH (11:53)
[2023-12-24] MEDS: EZETIMIBE 10 MG TAB PO SCH (11:53)
[2023-12-24] MEDS: PANTOprazole 40 MG TAB PO SCH (11:53)
[2023-12-24] MEDS: ISOSORBIDE MONO EXTENDED REL 60 MG TABCR PO SCH (11:53)
[2023-12-24] MEDS: ATROPINE SULFATE 0.1 MG/ML 10ML SYR IV ONE (12:00)
[2023-12-24] MEDS: METOPROLOL TARTRATE 1 MG/ML VIAL IV ONE (12:04)
[2023-12-24] MEDS: DOBUTamine HCL 12.5 MG/ML 20 ML VIAL IV ONE (12:05)
[2023-12-24] MEDS: MAGNESIUM SULFATE / D5W 1 GM/100 ML BAG IV SCH (12:09)
--- NOTE | 2023-12-24 12:17 | XCELERA ---
[id number] [id number]
--- NOTE | 2023-12-24 12:55 | Electrocardiogram Report ---
Test Reason : Blood Pressure : */* mmHG Vent. Rate : 48 BPM Atrial Rate : 48 BPM P-R Int : 128 ms QRS Dur : 90 ms QT Int : 462 ms P-R-T Axes : 37 10 24 degrees QTcB Int : 412 ms Sinus bradycardia with sinus arrhythmia Otherwise normal ECG No previous ECGs available Confirmed by Reji Esqueda ([id number]) on 12/24/2023 12:55:06 PM Referred By: Confirmed By: Reji Esqueda
[2023-12-24 13:35] LABS: Adenovirus PCR Not Detected (NotDetected); Bordetella parapertussis PCR Not Detected (NotDetected); Bordetella pertussis PCR Not Detected (NotDetected); Chlamydia pneumoniae PCR Not Detected (NotDetected); Coronavirus 229E PCR Not Detected (NotDetected); Coronavirus CoV-2 (COVID19)PCR Not Detected (NotDetected); Coronavirus HKU1 PCR Not Detected (NotDetected); Coronavirus NL63 PCR Not Detected (NotDetected); Coronavirus OC43PCR Not Detected (NotDetected); Human Metapneumovirus PCR Not Detected (NotDetected); Influenza A PCR Not Detected (NotDetected); Influenza B PCR Not Detected (NotDetected); Mycoplasma pneumoniae PCR Not Detected (NotDetected); Parainfluenza Virus 1 PCR Not Detected (NotDetected); Parainfluenza Virus 2 PCR Not Detected (NotDetected); Parainfluenza Virus 3 PCR Not Detected (NotDetected); Parainfluenza Virus 4 PCR Not Detected (NotDetected); Respiratory Syncytial VirusPCR Not Detected (NotDetected); Rhinovirus/Enterovirus PCR Not Detected (NotDetected)
[2023-12-24 16:04] LABS: D Dimer 1550 ug/L FEU (0-500)
[2023-12-24] MEDS: OPTIRAY 320 125ml IV ONE (16:47)
[2023-12-24] MEDS ORDERED: CYCLOBENZAPRINE HCL 5 MG TAB PO PRN (17:04)
[2023-12-24] MEDS ORDERED: traMADol HCL 50 MG TABLET PO PRN (17:04)
--- NOTE | 2023-12-24 17:23 | CT Scan Report ---
CT angio chest PE protocol CLINICAL HISTORY: PE TECHNIQUE: Multidetector row helical CT of the chest was performed with angiographic protocol. Ruiz l and sagittal reformations were obtained. Coronal and sagittal MIPS were obtained from the axial kulwant a set and were submitted for review. Automated dose lowering techniques and/or adjustment according to patient size were utilized for this exam. CT DOSE: 823.9 mGy.cm Comparison: Comparison is made to chest radiograph 12/23/2023 FINDINGS: Lungs and pleura: 4 mm nodule is in the right middle lobe (series 4 image 85). Atelectasis versus sca rring is seen in the dependent lungs. Heart and pericardium: Cardiomegaly is seen with biatrial enlargement. Vessels: No evidence of pulmonary embolism. Pulmonary trunk measures 34 mm diameter. Mediastinum and [place]: Unremarkable. Chest wall and lower neck: Unremarkable. Abdomen: A hiatal hernia is seen. Right renal cysts are seen. Bones: Degenerative changes in the thoracic spine. IMPRESSION: 1. No acute abnormality and in particular no evidence of pulmonary embolus. 2. Small pulmonary nodule as above. According to Fleischner criteria, no follow-up is required in lo w risk patients, in high-risk patients, a 12 month follow-up CT can be optionally performed. ACT 112: Negative or not required by law. Electronically signed by: Raz Parikh M.D. 12/24/2023 5:21 PM
[2023-12-24] MEDS: MAGNESIUM SULFATE 1GM / D5W BAG IV ONE (17:29)
--- NOTE | 2023-12-24 18:47 | Discharge Summary ---
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 Came to ED with 3 days of substernal chest pressure - mostly exertional, at times with rest as well as dyspnea on exertion. She has had BOSS in the past but seemed worse over the weekend. [place] under the weather and fatigued as well. No cough/sputum or URI symptoms. -EKGs without acute ischemic changes, serial HS-troponin negative x 3, no evidence of ACS -sand screener operator consulted, she had dobutamine stress echo which was negative for ischemia thus risk of major cardiac event in near future is low -she will continue her usual ASA/statin/zetia/Imdur and has follow up with her sand screener operator in January -considered viral syndrome, extended respiratory Biofire panel was negative for COVID/flu/RSV and other respiratory pathogens -still could be resolving viral syndrome though lacks URI symptoms and fever -Ddimer was elevated and she recently had 4h car ride. No history of VTE and no leg pain or swelling -CTA chest was negative for PE or other significant findings 4 mm pulmonary nodule - with her history of remote breast cancer, recommend considering repeat chest CT in 12 months. I did discuss this with her. She had hypomagnesemia with Mag 1.3. Replaced with 3g IV. Started oral supplement. Likely chronic and related to / exacerbated by HCTZ. -recheck mag as outpatient Hypertension - reports she's often elevated with automatic cuff on intake and normal with manual cuff. Continue same meds, she has follow up scheduled with primary care. Plan GERD -Cotninue Famotidine -Continue Protonix 40mg po daily -consider increasing PPI to bid in case chest pain symptoms are reflux-related Hypothyroid -Continue Synthroid Notes For Next Care Provider Please recheck magnesium level Consider repeat chest CT in 12 months for small pulmonary nodule (see report below) Medication Changes From Visit None Admission HPI Per Admitting Provider Nadja Bowens is a pleasant 78yo female presenting with chest discomfort. Patient with history of CAD s/p stent placement x 3 (prior to Covid, unsure of year) at [facility]. Per patient and granddaughters at bedside, patient apparently suffered a coronary artery dissection following her stent placement and sustained 7 cardiac arrests. She then had placement of 2 subsequent stents. She had a temporary pacer in place for a time. She follows q 3 monthly with her home First Aid Instructor - Dr. Wilson at [facility]. Patient is visiting family in the [place] area. She reports 3 days of intermittent chest discomfort. Pressure and tightening as well as shortness of breath. This sensation occurs mostly after climbing stairs but occasionally occurs at rest. She does have some discomfort in her right shoulder blade as well but is not sure if this is secondary to muscular pain - it has been improving slightly with use of heating pad and medications. Yesterday she felt very tired and wiped out all day and spent most of the day in bed. Patient denies fever, chills, nausea, vomiting, diarrhea. No edema, orthopnea or weight gain. No additional complaints at this time. In the ER she is afebrile, sinus bradycardic with HR 50-53 bpm, BP is well controlled. No respiratory distress. ER Course: Toradol 30mg IV ASA 324mg PO Discharge Exam PHYSICAL EXAMINATION Last 24h vital signs reviewed, see documentation in flowsheet General: very pleasant woman, comfortable appearing, no distress HEENT: Normocephalic, atraumatic, pupils round and equal, sclerae anicteric, no conjunctival injection, moist mucus membranes Lungs: Normal respiratory effort. Clear to auscultation bilaterally. No RRW Heart: Regular rate and rhythm, no murmurs. No JVD Abdomen: Soft, nontender, nondistended. Bowel sounds present. Extremities: Warm, dry, well-perfused. No extremity edema. no leg swelling Neuro: Alert and oriented x 4, face symmetric, moves 4 extremities well Psych: Normal affect and behavior Discharge Plan Discharge Items Patient Disposition: Home - Self-Care Reason For Visit: BOSS, CHEST PAIN Discharge Diagnosis: Dyspnea, chest pain Activity: Resume your previous activity Non-emergency contact: Primary Care Provider and First Aid Instructor Call non-emergency contact if: you have any medication questions, your symptoms worsen and you have a fever Follow-up/Referrals: Cynthia Doran MD [Primary Care Provider] - Diet: Heart Healthy Addtl Attending Provider Instructions: You were evaluated for chest pain and shortness of breath Fortunately no serious cause was found There was no evidence of heart attack based on EKGs and blood tests. You had a stress echo that was negative for signs of cardiac ischemia, so cardiac chest pain seems unlikely. CT angiogram of the chest was negative for blood clots in the lungs (pulmonary embolism) and other things to cause shortness of breath like pneumonia or lung disease. Extended respiratory viral panel was negative. It is possible that you had a viral infection that made you feel poorly but is resolving and not picked up on testing. There are also many other causes of chest pain that are not serious, for example musculoskeletal pain, reflux and anxiety. You may try analgesics and heating pad for back and musculoskeletal pain. You can also try increasing your omeprazole to twice a day for a week or two and see if that makes a difference. Your blood magnesium level was low. We tanked this up with some IV magnesium. It may be related to your blood pressure medication (HCTZ) You can take a magnesium supplement once or twice a day, if tolerated. Magnesium oxide 400 mg is available over the counter If that causes diarrhea you can change to the extended release "Slo-Mag" formulation There was a small incidental pulmonary nodule seen on chest CT. "Lungs and pleura: 4 mm nodule is in the right middle lobe " Because of your history of cancer, consider having your doctor order a repeat chest CT in 12 months to make sure this nodule is not changing Continue your usual medications and follow up with your primary care doctor and sand screener operator when you return home. It was a pleasure taking care of you in the hospital, Joana David MD Pending Studies at Discharge: No Stand-Alone Forms: My [facility], Smoking Cessation Medications and DC Order Prescriptions: New lorazepam 0.5 mg tablet 0.5 mg PO DAILY PRN (Reason: anxiety) Qty: 7 0RF Continued multivitamin Tablet 1 tab PO QAM naproxen 250 mg tablet 250 mg PO [id number] Rx Instructions: TAKE IN MORNING OF //SAT/SUN albuterol sulfate 90 mcg/actuation HFA aerosol inhaler 1 puff INHALATION QID fluticasone propionate 50 mcg/actuation spray,suspension 2 spray INTRANASAL QAM acetaminophen [Tylenol Extra Strength] 500 mg Tablet 500 mg PO 3XWK Rx Instructions: take in the mornings of MON/WED/FRI aspirin 81 mg Tablet,Delayed Release (Dr/Ec) 81 mg PO QAM atorvastatin 80 mg tablet 80 mg PO HS Qty: 7 0RF famotidine 40 mg tablet 40 mg PO HS Qty: 7 0RF atenolol 25 mg tablet 12.5 mg PO QAM Qty: 4 0RF omeprazole 40 mg capsule,delayed release(DR/EC) 40 mg PO QAM Qty: 7 0RF levothyroxine 100 mcg tablet 100 mcg PO DAILYBB Qty: 7 0RF isosorbide mononitrate 60 mg tablet extended release 24 hr 60 mg PO QAM Qty: 7 0RF lorazepam 0.5 mg tablet 0.5 mg PO DAILY PRN (Reason: Anxiety) Qty: 7 0RF amlodipine 10 mg tablet 10 mg PO QAM Qty: 7 0RF losartan-hydrochlorothiazide 50-12.5 mg tablet 1 tab PO QAM Qty: 7 0RF ezetimibe 10 mg tablet 10 mg PO QAM Qty: 7 0RF Discharge Orders: Discharge Order (Routine); Ordered 12/24/23 Ordered By: Joana David Admission Data Admit Date/Time: 12/23/23 21:17 Attending Provider: Joana David Admit Provider: Jaylene Fitzgerald Primary Care Provider: Cynthia Doran Other Providers: Paramjit Lopes; Jaylene Fitzgerald Hospital Stay Data Consultations 12/23/23 21:20 Consult Cardiology Routine 12/23/23 21:23 ED Decision to Admit Stat 12/23/23 21:47 HIM [Consult Health Information Management] Routine Diagnostic Imagining Performed 12/24/23 16:16 CT angio chest PE protocol Stat Chest X-Ray 12/23/23 18:29 XR chest 1V portable HISTORY: 78 years-old Female Chest pain, nonspecific COMPARISON: None TECHNIQUE: AP view of the chest FINDINGS: Cardiac silhouette is enlarged. Surgical clips project over the left lung base and left hilum. Mild nonspecific interstitial coarsening, likely chronic. No pneumothorax or pleural effusion. Bones appear grossly intact. IMPRESSION: No acute process. ACT 112: Negative or not required by law. The above report was generated using voice recognition software. It may contain grammatical, syntax or spelling errors. Electronically signed by: Roshan Kahn M.D. 12/23/2023 6:59 PM Chest CTA 12/24/23 16:16 CT angio chest PE protocol CLINICAL HISTORY: PE TECHNIQUE: Multidetector row helical CT of the chest was performed with angiographic protocol. Coronal and sagittal reformations were obtained. Coronal and sagittal MIPS were obtained from the axial data set and were submitted for review. Automated dose lowering techniques and/or adjustment according to patient size were utilized for this exam. CT DOSE: 823.9 mGy.cm Comparison: Comparison is made to chest radiograph 12/23/2023 FINDINGS: Lungs and pleura: 4 mm nodule is in the right middle lobe (series 4 image 85). Atelectasis versus scarring is seen in the dependent lungs. Heart and pericardium: Cardiomegaly is seen with biatrial enlargement. Vessels: No evidence of pulmonary embolism. Pulmonary trunk measures 34 mm diameter. Mediastinum and whitney: Unremarkable. Chest wall and lower neck: Unremarkable. Abdomen: A hiatal hernia is seen. Right renal cysts are seen. Bones: Degenerative changes in the thoracic spine. IMPRESSION: 1. No acute abnormality and in particular no evidence of pulmonary embolus. 2. Small pulmonary nodule as above. According to Fleischner criteria, no follow-up is required in low risk patients, in high-risk patients, a 12 month follow-up CT can be optionally performed. ACT 112: Negative or not required by law. Electronically signed by: Raz Parikh M.D. 12/24/2023 5:21 PM dobutamine stress echo 12/24/23 summary: Negative dobutamine stress echocardiogram for myocardial ischemia at 100% of age-predicted maximum heart rate no dobutamine induced chest pain or EKG changes baseline echocardiogram notes normal left ventricular systolic function with mild LVH, no significant valvular disease 12/24/23 12/24/23 12/24/23 Range/Units 15:19 12:37 04:12 WBC 5.61 (4.8-10.8) K/ul RBC 4.84 (4.20-5.40) M/uL Hgb 12.6 (12.0-16.0) g/dl Hct 38.3 (37.0-47.0) % MCV 79.1 L (80.0-100.0) fL MCH 26.0 (25.0-34.0) pg MCHC 32.9 (32.0-36.0) g/dL RDW Std Deviation 44.4 (36.4-46.3) fL RDW Coeff of Erin 15.4 H (11.5-14.5) % Plt Count 234 (130-400) K/uL MPV 10.9 (9.4-12.4) fL Immature Gran % (Auto) 0.2 % Neut % (Auto) 45.8 % Lymph % (Auto) 37.3 % Screven % (Auto) 12.8 % Eos % (Auto) 2.5 % Baso % (Auto) 1.4 % Neut # (Auto) 2.57 (1.40-6.50) K/uL Lymph # (Auto) 2.09 (1.20-3.40) K/uL Screven # (Auto) 0.72 H (0.11-0.59) K/uL Eos # (Auto) 0.14 (0.00-0.50) K/uL Baso # (Auto) 0.08 (0.00-0.20) K/uL Immature Gran # (Auto) 0.01 (0.01-0.20) K/uL PT (9.0-12.0) Seconds INR (0.9-1.1) D-Dimer 1550 H* (0-500) ug/L FEU Sodium 139 (136-145) mmol/L Potassium 3.9 (3.5-5.1) mmol/L Chloride 108 H (98-107) mmol/L Carbon Dioxide 24 (21-32) mmol/L Anion Gap 7 (3-11) BUN 24 H (6-23) mg/dl Creatinine 1.05 (0.6-1.2) mg/dl Est Cr Clr Drug Dosing 51.0 Est GFR ( Amer) 59.3 ml/min Est GFR (Non-Af Amer) 51.2 ml/min BUN/Creatinine Ratio 22.9 H (10-20) Glucose 92 (70-99(Fasting)) mg/dl Calcium 8.8 (8.6-10.3) mg/dl Magnesium 1.3 L (1.7-2.4) mg/dl Total Bilirubin (0.2-1.0) mg/dl AST (13-39) U/L ALT (7-52) U/L Alkaline Phosphatase (34-104) U/L Troponin I High Sens 5.9 (0-14) pg/ml B-Natriuretic Peptide (0-100) pg/ml Total Protein (6.0-8.3) gm/dl Albumin (3.4-5.0) gm/dl Globulin (2.5-4.0) gm/dl Albumin/Globulin Ratio (0.9-2) Lipase (11-82) U/L Urine Color Urine Appearance (Clear) Urine pH (4.5-7.5) Ur Specific Alexander (1.000-1.030) Urine Protein (Negative) Urine Glucose (UA) (Negative) Urine Ketones (Negative) Urine Blood (Negative) Urine Nitrite (Negative) Urine Bilirubin (Negative) Urine Urobilinogen (Negative) Ur Leukocyte Esterase (Negative) Urine WBC (Auto) (0-5) /hpf Urine RBC (Auto) (0-2) /hpf U Hyaline Cast (Auto) (0-2) /lpf U Epithel Cells (Auto) (0-2) /hpf Urine Bacteria (Auto) (None Seen) Adenovirus (PCR) Not Detected (NotDetected) B. pertussis DNA (PCR) Not Detected (NotDetected) B.parapertussis DNA PCR Not Detected (NotDetected) C. pneumoniae DNA (PCR) Not Detected (NotDetected) Coronavirus OC43 (PCR) Not Detected (NotDetected) Coronavirus HKU1 (PCR) Not Detected (NotDetected) Coronavirus 229E (PCR) Not Detected (NotDetected) SARS-CoV-2 (PCR) Not Detected (NotDetected) Coronavirus NL63 (PCR) Not Detected (NotDetected) Human Metapneumovir PCR Not Detected (NotDetected) Influenza Type A (PCR) Not Detected (NotDetected) Influenza Type B (PCR) Not Detected (NotDetected) M. pneumoniae (PCR) Not Detected (NotDetected) Parainfluenza 1 (PCR) Not Detected (NotDetected) Parainfluenza 2 (PCR) Not Detected (NotDetected) Parainfluenza 3 (PCR) Not Detected (NotDetected) Parainfluenza 4 (PCR) Not Detected (NotDetected) RSV (PCR) Not Detected (NotDetected) Entero/Rhino (PCR) Not Detected (NotDetected) 12/23/23 12/23/23 12/23/23 Range/Units 22:00 20:48 19:58 WBC 6.13 (4.8-10.8) K/ul RBC 5.77 H (4.20-5.40) M/uL Hgb 14.6 (12.0-16.0) g/dl Hct 46.3 (37.0-47.0) % MCV 80.2 (80.0-100.0) fL MCH 25.3 (25.0-34.0) pg MCHC 31.5 L (32.0-36.0) g/dL RDW Std Deviation 45.1 (36.4-46.3) fL RDW Coeff of Erin 15.8 H (11.5-14.5) % Plt Count 241 (130-400) K/uL MPV 10.6 (9.4-12.4) fL Immature Gran % (Auto) 0.2 % Neut % (Auto) 47.2 % Lymph % (Auto) 40.6 % Screven % (Auto) 9.1 % Eos % (Auto) 1.8 % Baso % (Auto) 1.1 % Neut # (Auto) 2.89 (1.40-6.50) K/uL Lymph # (Auto) 2.49 (1.20-3.40) K/uL Screven # (Auto) 0.56 (0.11-0.59) K/uL Eos # (Auto) 0.11 (0.00-0.50) K/uL Baso # (Auto) 0.07 (0.00-0.20) K/uL Immature Gran # (Auto) 0.01 (0.01-0.20) K/uL PT 11.2 (9.0-12.0) Seconds INR 1.0 (0.9-1.1) D-Dimer (0-500) ug/L FEU Sodium 139 (136-145) mmol/L Potassium 4.3 (3.5-5.1) mmol/L Chloride 104 (98-107) mmol/L Carbon Dioxide 26 (21-32) mmol/L Anion Gap 9 (3-11) BUN 21 (6-23) mg/dl Creatinine 1.06 (0.6-1.2) mg/dl Est Cr Clr Drug Dosing Not Reportable Est GFR ( Amer) 58.7 ml/min Est GFR (Non-Af Amer) 50.6 ml/min BUN/Creatinine Ratio 19.8 (10-20) Glucose 83 (70-99(Fasting)) mg/dl Calcium 10.0 (8.6-10.3) mg/dl Magnesium 1.4 L (1.7-2.4) mg/dl Total Bilirubin 0.7 (0.2-1.0) mg/dl AST 25 (13-39) U/L ALT 18 (7-52) U/L Alkaline Phosphatase 98 (34-104) U/L Troponin I High Sens 8.5 8.0 (0-14) pg/ml B-Natriuretic Peptide 86 (0-100) pg/ml Total Protein 8.8 H (6.0-8.3) gm/dl Albumin 4.4 (3.4-5.0) gm/dl Globulin 4.4 H (2.5-4.0) gm/dl Albumin/Globulin Ratio 1.0 (0.9-2) Lipase 13 (11-82) U/L Urine Color Yellow Urine Appearance Clear (Clear) Urine pH 5.0 (4.5-7.5) Ur Specific Alexander 1.009 (1.000-1.030) Urine Protein Negative (Negative) Urine Glucose (UA) Negative (Negative) Urine Ketones Negative (Negative) Urine Blood Negative (Negative) Urine Nitrite Negative (Negative) Urine Bilirubin Negative (Negative) Urine Urobilinogen Negative (Negative) Ur Leukocyte Esterase 1+ H (Negative) Urine WBC (Auto) 0-5 (0-5) /hpf Urine RBC (Auto) 0-2 (0-2) /hpf U Hyaline Cast (Auto) 0-2 (0-2) /lpf U Epithel Cells (Auto) 0-2 (0-2) /hpf Urine Bacteria (Auto) None Seen (None Seen) Adenovirus (PCR) (NotDetected) B. pertussis DNA (PCR) (NotDetected) B.parapertussis DNA PCR (NotDetected) C. pneumoniae DNA (PCR) (NotDetected) Coronavirus OC43 (PCR) (NotDetected) Coronavirus HKU1 (PCR) (NotDetected) Coronavirus 229E (PCR) (NotDetected) SARS-CoV-2 (PCR) (NotDetected) Coronavirus NL63 (PCR) (NotDetected) Human Metapneumovir PCR (NotDetected) Influenza Type A (PCR) (NotDetected) Influenza Type B (PCR) (NotDetected) M. pneumoniae (PCR) (NotDetected) Parainfluenza 1 (PCR) (NotDetected) Parainfluenza 2 (PCR) (NotDetected) Parainfluenza 3 (PCR) (NotDetected) Parainfluenza 4 (PCR) (NotDetected) RSV (PCR) (NotDetected) Entero/Rhino (PCR) (NotDetected) Pending Results Patient Have Any Pending Studies at Discharge: No Discharge Instructions Given to Patient (Per Discharging Provider) You were evaluated for chest pain and shortness of breath Fortunately no serious cause was found There was no evidence of heart attack based on EKGs and blood tests. You had a stress echo that was negative for signs of cardiac ischemia, so cardiac chest pa in seems unlikely. CT angiogram of the chest was negative for blood clots in the lungs (pulmonary embolism) and other things to cause shortness of breath like pneumonia or lung disease. Extended respiratory viral panel was negative. It is possible that you had a viral infection that made you feel poorly but is resolving and not picked up on testing. There are also many other causes of chest pain that are not serious, for example musculoskeletal pain, reflux and anxiety. You may try analgesics and heating pad for back and musculoskeletal pain. You can also try increasing your omeprazole to twice a day for a week or two and see if that makes a difference. Your blood magnesium level was low. We tanked this up with some IV magnesium. It may be related to your blood pressure medication (HCTZ) You can take a magnesium supplement once or twice a day, if tolerated. Magnesium oxide 400 mg is available over the counter If that causes diarrhea you can change to the extended release "Slo-Mag" formulation There was a small incidental pulmonary nodule seen on chest CT. "Lungs and pleura: 4 mm nodule is in the right middle lobe " Because of your history of cancer, consider having your doctor order a repeat chest CT in 12 months to make sure this nodule is not changing Continue your usual medications and follow up with your primary care doctor and sand screener operator when you return home. It was a pleasure taking care of you in the hospital, Joana David MD Total Time Total Time Spent Total Time Spent (In Minutes): I personally spent: 60 minutes today on clinical care activities including: reviewing chart notes and vital signs reviewing labs reviewing studies discussion with configuration management consultant examining and counseling the patient counseling the patient's family writing orders, prescriptions, discharge instructions documentation Coding Level of Care Code 47962 INP/OBS DISCH >30 MIN Diagnoses Chest pain, unspecified type R07.9 Chest pain type: unspecified
[2023-12-24] MEDS ORDERED: FAMOTIDINE 40 MG TABLET PO SCH (21:00)
[2023-12-24] MEDS ORDERED: ATORVASTATIN 40 MG TAB PO SCH (21:00)
== END 2023-12-24 19:53 | disposition home or self-care (01) ==
LOC: EDINP 18:12 → ED 18:12 → SUATTDRO 21:17 → EDINP 23:49